=== PATIENT | male | born 1955 | race Two or more races ===

== ENCOUNTER → 2016-05-11 | Day surgery (SDC) | payer BC ==
[2016-05-11] VITALS (8 sets, daily range): BP systolic 108–139; BP diastolic 74–85
[~2016-05-11] VITALS: Ht 198.1 cm; Wt 104.3 kg
[~2016-05-11] MED LIST: AMBIEN5 MG ORAL; LEXAPRO20 MG ORAL; LR 1000ml ONE; Lidocaine 1% MPF 10mg/ml 5ml ONE; METFORMIN HCL500 M1 ORAL; PLAVIX75 MG ORAL; PREVACID30 MG ORAL; Propofol 10mg/ml 20ml IV ONE; SIMVASTATIN20 MG ORAL
--- NOTE | 2016-05-11 07:37 | Immediate Post-Op Evaluation ---
Immediate Post-Op Evalulation Immediate Post-Op Evalulation Procedure: EGD/colonoscopy Date of Evaluation: May 11, 2016 Time of Evaluation: 09:30 IV Fluids: 800 ml Blood Products: 0 Estimated Blood Loss: 0 Urinary Output: nm Blood Pressure Systolic: 108 Blood Pressure Diastolic: 74 Pulse Rate: 79 Respiratory Rate: 16 O2 Sat by Pulse Oximetry: 99 Temperature (Fahrenheit): 97.6 Pain Score (1-10): 0 Nausea: No Vomiting: No Complications none Patient Status: reacts, patent, none Hydration Status: adequate Drug: none ALINE ELIZALDE M.D. May 11, 2016 07:37
--- NOTE | 2016-05-11 07:38 | 48 Hour Post Anesthesia Eval ---
Post Anesthesia Evaluation Procedure: EGD/colonoscopy Date of Evaluation: May 11, 2016 Time of Evaluation: 10:17 Blood Pressure Systolic: 116 0: 72 Pulse Rate: 72 Respiratory Rate: 16 Temperature (Fahrenheit): 97.6 O2 Sat by Pulse Oximetry: 99 Airway: patent Nausea: No Vomiting: No Pain Intensity: 0 Hydration Status: adequate Cardiopulmonary Status: stable Mental Status/LOC: other - drowsy Follow-up Care/Observations: per pacu protocol Post-Anesthesia Complications: none Follow-up care needed: N/A AILNE ELIZALDE M.D. May 11, 2016 07:38
--- NOTE | 2016-05-11 08:41 | Short Stay Surgery H&P ---
History of Present Illness History of Present Illness Chief Complaint Abdominal pain andscreening colonoscopy. JEAN Bolton is a 61 year old male who was admitted on for Colon Screening and GERDs. Patient History Allergies: Coded Allergies: SULFA (SULFONAMIDE ANTIBIOTICS) (Verified Allergy, Unknown, [facility] , 05/11/16) PAST MEDICAL HISTORY: (1) Diabetes (2) Hyperlipidemia (3) Coronary artery abnormality Past Surgeries: Social History: Medication History Scheduled Clopidogrel Bisulfate* (Plavix*), 75 MG ORAL DAILY, (Reported) Escitalopram Oxalate* (Lexapro*), 20 MG ORAL DAILY, (Reported) Lansoprazole* (Prevacid*), 20 MG ORAL DAILY, (Reported) Metformin Hcl* (Metformin Hcl*), 500 MG ORAL DAILY, (Reported) Simvastatin (Zocor), 20 MG ORAL DAILY, (Reported) Scheduled PRN Zolpidem Tartrate* (Ambien*), 5 MG ORAL BEDTIME PRN for Insomnia, (Reported) Review of Systems Cardiovascular: Reports: valvular disease Respiratory: Reports: no symptoms Skeletal: Reports: no symptoms Gastrointestinal: Reports: gastro esophageal reflux disease Genitourinary: Reports: no symptoms Neurologic: Reports: no symptoms Endocrine: Reports: diabetes - type 2 Hematologic: Reports: no symptoms Physical Exam Vital Signs Last Vital Signs Date Time Temp Pulse Resp B/P Pulse Ox O2 Delivery O2 Flow Rate FiO2 05/11/16 08:21 98.3 65 17 139/84 98 Room Air Skin: normal HENT: normal Heart: normal Lungs: normal Abdomen: normal Extremities: normal Genitourinary: normal Plan Plan of Care Upper and lower GI endoscopy. Preop Interventions None. Summary of Findings See the reports. Final Diagnosis: Attestation Are the patient's medical conditions optimized for surgery? Attestation Response: yes RACH ABERNATHY May 11, 2016 08:41
--- NOTE | 2016-05-11 08:43 | Pre-Procedure Note/Attestation ---
Pre-Procedure Note/Attestation Complete Prior to Procedure Planned Procedure: left Procedure Narrative: Endoscopic examination of the upper and lower GI tract. Indications for Procedure Pre-Operative Diagnosis: R/O gastritis/Peptic ulcer/ colon polyp/CA Attestation I attest that I discussed the nature of the procedure; its benefits; risks and complications; and alternatives (and the risks and benefits of such alternatives ), prior to the procedure, with the patient (or the patient's legal patient service representative). I attest that, if there was a reasonable possibility of needing a blood transfusion, the patient (or the patient's legal patient service representative) was given the [place] [employer] standardized written summary, pursuant to the [place] Blood Safety Act ([place] Health and Safety Code # 1645, as amended). I attest that I re-evaluated the patient just prior to the surgery and that there has been no change in the patient's H&P, except as documented below: JOSEMANUEL,SAID May 11, 2016 08:42
--- NOTE | 2016-05-11 08:57 | Anethesia Preoperative Eval ---
Anesthesia Pre-op PMH/ROS General Date of Evaluation: May 11, 2016 Time of Evaluation: 08:34 Anesthesiologist: Kenny ASA Score: ASA 3 Mallampati Score Class I : Soft palate, uvula, fauces, pillars visible Class II: Soft palate, uvula, fauces visible Class III: Soft palate, base of uvula visible Class IV: Only hard plate visible Mallampati Classification: Class II Surgeon: Luis Diagnosis: abdominal pain/GERD/screening colon Surgical Procedure: EGD with bx/screening colonoscopy Anesthesia History: none, other - no complications Allergies: Coded Allergies: SULFA (SULFONAMIDE ANTIBIOTICS) (Verified Allergy, Unknown, [facility] , 05/11/16) Past Medical History Cardiovascular: Reports: CAD - has one coronary stent, on plavix Gastrointestinal/Genitourinary: Reports: GERD Neurologic/Psychiatric: Reports: depression/anxiety Anesthesia Pre-op Phys. Exam Physician Exam Last Vital Signs Date Time Temp Pulse Resp B/P Pulse Ox O2 Delivery O2 Flow Rate FiO2 05/11/16 08:21 98.3 65 17 139/84 98 Room Air Constitutional: NAD Neurologic: CN 2-12 intact Cardiovascular: RRR Respiratory: CTA Airway Exam Mallampati Score: Class II MO: full Anesthesia Pre-op A/P Risk Assessment & Plan Plan: MAC Status Change Before Surgery: No Pre-Antibiotics Drug: NONE ALINE ELIZALDE M.D. May 11, 2016 08:57
--- NOTE | 2016-05-11 09:29 | Endoscopy Procedure Note ---
Endoscopy Procedure Note Indication for Procedure: Abdominal pains, Gerds and screening cooonoscopy. Procedures Performed: EGD - Moderate gastritis of the mid body of the stomach over the greator curvator with scattered submucosal hamorrahgic spots, biopsied. Mild antritis., colonoscopy - Poor colon preparation. Mild internal hemorrhoids. Mild diverticulosis of the rectosigmoid area. Incidental finding of 3mm hyperplastic polyp found in mid transverse colon removed with cold snare. RACH ABERNATHY May 11, 2016 09:29
--- NOTE | 2016-05-11 09:30 | Discharge Instructions ---
Discharge Instructions Discharge Instructions Follow up with: Visit the doctor after two weeks in the office. For Congestive Heart Failure Reminder Report to your physician any weight gain of 5 pounds or more in one week. JOSEMANUEL,RACH May 11, 2016 09:30
--- NOTE | 2016-05-11 11:17 | Operative Note - Dictated ---
DATE OF OPERATION: 05/11/2016 PROCEDURE: Esophagogastroduodenoscopy with biopsy. PREOPERATIVE DIAGNOSES: 1. Abdominal pain. 2. History of gastroesophageal reflux. POSTOPERATIVE DIAGNOSIS: Moderate gastritis of the body of the stomach in greater curvature area with submucosal hemorrhagic spots. Biopsies with mild antritis otherwise normal study. MEDICATION USED: Per Dr. Wu, anesthesiologist. INSTRUMENT: GIF Olympus upper gastrointestinal video endoscope. DESCRIPTION OF PROCEDURE: The patient after arriving in the endoscopy unit, was told about risks and benefits of the procedure, which he accepted and signed the informed consent. He was then put on the left lateral decubitus position. After adequate IV sedation, the scope was gently passed through the cricopharyngeal area, was lodged into the upper esophagus, gradually advanced towards the gastroesophageal junction. The entire length of the esophagus looked normal. No evidence of varices, inflammatory process, ulceration, stricture, etc. was found. GE junction also looked normal. At this time, the scope was inserted into the stomach. Gastric cavity was distended with insufflation of air. At this point, examination of the fundus of the stomach did not reveal any abnormality however on retroflexion toward the mid body greater curvature side area there was evidence of inflammatory process of moderate degree presenting with edema of the folds along with submucosal hemorrhages around this area within the distance of 5 to 6 cm ulceration of posterior wall. Multiple biopsies from this area was obtained. Subsequently, the scope was gradually passed toward the lower stomach in the antral area where there was some evidence of mild erythema and edema consistent with mild antritis. There was no ulcers, tumors, or polyps, however. At this point, the scope was passed through the pylorus. First and second portion of duodenum were found to be completely normal. Finally, scope was pulled out and the procedure was terminated. The patient tolerated the procedure well. Said Nini Smith DR: ANGEL JOB#: [id number] CC:
--- NOTE | 2016-05-11 11:28 | Operative Note - Dictated ---
DATE OF OPERATION: 05/11/2016 PROCEDURE: Total colonoscopy with polypectomy. PREOPERATIVE DIAGNOSIS: Screening colonoscopy. POSTOPERATIVE DIAGNOSES: 1. Poor colonic preparation. 2. Mild internal hemorrhoids. 3. Highly redundant left colon. 4. Mild diverticulosis of the rectosigmoid area. 5. Incidental finding of 3 mm hyperplastic polypoid lesion in the midtransverse colon, removed with cold snare. MEDICATION USED: Per Dr. Cox, anesthesiologist. INSTRUMENT: GIF Olympus videocolonoscope. DESCRIPTION OF PROCEDURE: The patient after arriving in the endoscopy unit, was told about risks and benefits of the procedure, which he accepted and signed the informed consent. At this time, he was put in the left lateral decubitus position. After adequate IV sedation, the scope was gently passed through the rectosigmoid area revealing evidence of minimal internal hemorrhoids of no great significance they were not friable. Retroflexion maneuver was applied here, which did not reveal any evidence of tumors or polyps etc. At this time, the scope was passed through highly redundant left colon, which was filled with green liquidy stool signifying poor colonic preparation. At this point only few areas of diverticular lesion was found in the rectosigmoid area, which was not significant. The scope was then passed through the highly redundant left colon as I mentioned, reaching to the splenic flexure, and subsequently guided into transverse colon. The incidental finding of 3 mm hyperplastic diminutive polyp or polyp was seen in the mid transverse colon, area, which was grabbed with cold snare and totally removed and the specimen was submitted to pathology lab. Finally, scope reached towards the hepatic flexure, right colon all the way to the base of the cecum. All these areas however remained to be normal. Finally within seven minutes, the scope was gradually pulled out and re-evaluation of the colon did not reveal any other pathology rather than what I was mentioned earlier. The patient tolerated the procedure well and left the endoscopy room in a good condition. Said Nini Smith DR: ANGEL JOB#: [id number] CC:
== END | disposition home or self-care (01) ==
LOC: GAS 07:38
DX: Z12.11 Encounter for screening for malignant neoplasm of colon (principal); Q43.8 Other specified congenital malformations of intestine; D12.3 Benign neoplasm of transverse colon; K64.8 Other hemorrhoids; K57.30 Diverticulosis of large intestine without perforation or abscess without bleeding; K21.9 Gastro-esophageal reflux disease without esophagitis; K29.51 Unspecified chronic gastritis with bleeding; B96.81 Helicobacter pylori [H. pylori] as the cause of diseases classified elsewhere; K25.9 Gastric ulcer, unspecified as acute or chronic, without hemorrhage or perforation; E11.9 Type 2 diabetes mellitus without complications; Z79.84 Long term (current) use of oral hypoglycemic drugs; E78.5 Hyperlipidemia, unspecified; I25.10 Atherosclerotic heart disease of native coronary artery without angina pectoris; Z95.5 Presence of coronary angioplasty implant and graft; F32.9 Major depressive disorder, single episode, unspecified; F41.9 Anxiety disorder, unspecified; Z79.899 Other long term (current) drug therapy; Z88.2 Allergy status to sulfonamides
CPT/HCPCS: 43239; 45385; 82962; J2704; J7120; 94003; 94150